=== PATIENT | female | born 1985 | race Caucasian/White ===

== ENCOUNTER 2017-02-05 05:18 | Inpatient (IN) | payer OTHER ==
--- NOTE | 2017-01-16 08:59 | PAT Medication Instructions ---
Service Date Jan 16, 2017. Current Home Medication List Adapalene (Differin), 1 APPLN TOP HS Clindamycin Phosphate-Benzoyl (Acanya), 1 APPLN TOP QAM Ibuprofen (Advil), 400 MG PO PRN Lorazepam (Ativan), 0.5 MG PO TID PRN for RN Melatonin-Pyridoxine (Melatonin), 3 MG PO HS PRN for PRN Medication Instructions For Your Scheduled Surgery - Check with surgeon for instructions: Ibuprofen (Advil), 400 MG PO PRN - Hold the following medications 24 hours prior to surgery: Adapalene (Differin), 1 APPLN TOP HS (facial) Clindamycin Phosphate-Benzoyl (Acanya), 1 APPLN TOP QAM (facial) - Take the following medications the morning of surgery with a sip of water: Lorazepam (Ativan), 0.5 MG PO TID PRN for RN - Take the following medications as scheduled the night before surgery: Melatonin-Pyridoxine (Melatonin), 3 MG PO HS PRN for PRN Lorazepam (Ativan), 0.5 MG PO TID PRN for RN If you have any questions please call us at [phone] (Amie Queen PA-C) or [phone] or [phone]
[2017-01-16 09:11] LABS: BASO % 0.3 %; BASO ABS # 0.02 K/uL (0-0.2); COMPLETE YES; EOS % 2.3 %; HEMATOCRIT 39.9 % (37-47); IG% 0.2 %; LYMPH % 45.4 %; LYMPH ABS # 2.92 K/uL (1.2-3.4); MEAN CELL VOLUME 85.3 fL (80-100); MEAN CORPUSCULAR HEMOGLOBIN 29.1 pg (25-34); MEAN CORPUSCULAR HGB CONC 34.1 g/dl (32-36); MEAN PLATELET VOLUME 9.5 fL (7.4-10.4); MONO % 7.2 %; NEUT % 44.6 %; PLATELET COUNT 270 K/uL (130-400); RED BLOOD COUNT 4.68 M/uL (4.2-5.4); WHITE BLOOD COUNT 6.43 K/uL (4.8-10.8)
[2017-01-16 09:30] LABS: PARTIAL THROMBOPLASTIN RATIO 1.1; PROTHROMBIN TIME (PATIENT) 10.7 SECONDS (9.0-12.0)
--- NOTE | 2017-01-29 15:52 | HISTORY & PHYSICAL EXAMINATION ---
DATE OF ADMISSION: 02/05/2017 ADMITTING DIAGNOSES: Severe maxillary hypoplasia and mandibular prognathism. PROPOSED SURGICAL PROCEDURE: [place] I maxillary osteotomy to advance the maxilla 7 mm and set the mandible back via sagittal split and direct fixation by 3 mm. I plan to keep the patient in the intensive care unit for the first postoperative night. HISTORY OF PRESENT ILLNESS: Chel is a healthy 31-year-old white female who stands 5 feet 4 inches tall and weighs 172 pounds. 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 She is referred to my office a number of years ago with a very abnormal malocclusion. Her upper and lower teeth did not meet together. She has a great deal of difficulty in eating and chewing because of this inability of her teeth to meet. She had chronic ulcers on her tongue, cheek and lips as a result of the constant biting of these structures due to her malocclusion. In order to correct this problem, a combined orthodontic and orthognathic surgical approach was necessary. Chel underwent a successful maxillary osteotomy about 2 years ago in order to increase the dimension of her upper jaw. The upper jaw now has a nice dimension, but it is very retrognathic. As a result of this, the patient has a very thin lip and very hypoplastic midface. The patient has a maxillary mandibular discrepancy of approximately 10 mm. The surgical correction is going to involve on the Fort 1 maxillary osteotomy for advancement of about 7 mm with direct fixation followed by an immediate sagittal split osteotomy to push the mandible back 3 mm and into a good class 1 occlusion. I am hoping to get good direct osseous fixation and avoid any type of intermaxillary fixation, we may use temporary intermaxillary fixation with the use of some guiding elastics. I reviewed with medication list of all the risks, complications of this surgical procedure which include but are not limited to pain, swelling, infection, bleeding sinus, both chronic and acute, the need for blood transfusion which is extremely remote. In addition, we discussed the fact that she will have paresthesia involving the upper facial area involving the nose and upper lips as well as the lower lip in the cheek areas and possibly the tongue. We talked about there is a good possibility that this will be temporarily, but it is also possible that could be permanent, but not very common. We talked about the fact that she would need to be on a very soft diet. She will need to have close followup between me and her tool setter apprentice, Dr. Kevin Rinaldi, who practices orthodontics in [place], [place]. Chel has a good oral hygiene and her teeth are in good repair except they are in a very abnormal position. She has a maxillary hypoplasia with prognathic mandible. As a result of this, only the back teeth meet and she does not have a stable occlusion. I feel that Chel has an extremely good understanding of all the risks, complications of the proposed surgical procedures. A complete review of these risks and be found in the patient assessment portion of the chart. It is at this time that I find Chel to be a stable individual to undergo the orthognathic surgical procedure. PAST MEDICAL HISTORY: Her past medical history is essentially noncontributory. She gives no history of any type of heart or respiratory problems. Does not have any problems with walking stairs, running or doing housework. The patient states that she does have some problems with anxiety and then she had an EKG where it was determined that her rapid heart rate was due to anxiety rather than any type of cardiac event. Besides the anxiety, the patient does not have any other concomitant medical issues. She gives no history of any type of orthopedic or spine or joint problems. She feels that she is slightly overweight and would like to lose a number of pounds. SOCIAL HISTORY: She does not smoke. She does have alcohol occasionally. She does not smoke marijuana. She is 31. 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 She does not smoke and she drinks occasionally, 1-2 glasses of wine per week. PAST SURGICAL HISTORY: She has had operations in the past in which she had an upper jaw expansion and wisdom teeth removal. She had no problems with the anesthesia. ALLERGIES: She has no allergies to any drugs or medications. MEDICATIONS: She does take lorazepam 0.5 mg p.r.n. for anxiety and she states that she uses this only on rare occasions. She uses a gel for her face for acne and clindamycin lotion also for her face for skin care. REVIEW OF SYSTEMS: Gives no history of any type of liver or kidney problems, or history of any type of cancer and never had any anesthetic complications. 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 I find Chel to be a very healthy 31-year-old white female who is capable of undergoing the orthognathic surgical procedure as planned. Surgery is planned for 02/05/2017 at [facility]. One night of admission to the intensive care unit is planned. PHYSICAL EXAMINATION: HEAD: Normocephalic without any history of any head trauma, loss of consciousness, dizziness or vertigo. No history of any head trauma, headaches. No dizziness, no vertigo. EARS: Within normal limits. External auditory canals are clear. No hearing deficits. No outer ear pathology, no ear inner pathology noted. EYES: Pupils are round, reactive to light and accommodation. Sclera is clear. Extraocular motion within normal limits. Good visual acuity. NOSE: Midline. Septum is midline. The cheeks and the nasal areas are somewhat hyperplastic as a result of the sunken in appearance of the midface. She has no history of any type of nasal congestion or nasal deviations. She has good bilateral nasal sounds and good clear nasal breathing. ORAL CAVITY: The patient has a rather significant dental facial malocclusion. She has a severe maxillary hypoplasia with retrognathic maxilla, prognathic mandible. Her teeth are in good repair. Gingiva is within normal limits. The tongue, floor of the mouth and posterior pharyngeal areas were all within normal limits. There are some ulcers associated with her lip and cheek biting. The glans of the cheeks, parotid and submandibular all within normal limits. Temporomandibular joints are unremarkable with good range of motion. NECK: Supple, full range of motion. Thyroid not palpable. Trachea is midline. Good extension and flexation and good rotation. No abnormal masses noted. COR: Normal sinus rhythm. LUNGS: Clear to auscultation and percussion, bilateral symmetric. SKIN: Clear, dry, free of pathology. NEUROLOGIC: Grossly intact. ABDOMEN: Soft. No organomegaly. No rebound phenomena noted. ORTHOPEDIC: Grossly intact. FAMILY HISTORY: Essentially noncontributory. DATA: Laboratory studies were all found to be within normal limits. IMPRESSION AND PLAN: In my opinion, Chel is a healthy young lady who is capable of undergoing the proposed surgical procedure. She has an extremely good understanding of the surgical procedure including the risks and complications; surgery is planned for 02/05/2017 at the [facility]. [facility]
[~2017-02-05] VITALS: Ht 162.6 cm; Wt 79.2 kg
[2017-02-05] VITALS (13 sets, daily range): BP systolic 109–145; BP diastolic 65–93; PULSE 75–110; TEMP 36.6–36.8; O2SAT 93–99; Ht 162.6 cm; Wt 79.2 kg
[~2017-02-05 05:18] MED LIST: ADAP0.1G10 TOP; CLIN45GE TOP; IBUP-1050 PO; LORA-741 PO; MELA1TAB3 PO
[2017-02-05] MEDS ORDERED: LACTATED RINGER'S 1000ML 1,000 ML IV SCH ×2 (06:00)
[2017-02-05] MEDS ORDERED: CEFAZOLIN 1000MG/55 ML D5W IV SCH (06:00)
[2017-02-05] MEDS ORDERED: LIDOCAINE HCL 2% JELLY 30 ML TUBE EXT ONE (06:48)
[2017-02-05] MEDS ORDERED: OXYMETAZOLINE HCL 0.05% NA SPR 15 ML BTL ONE (06:48)
--- NOTE | 2017-02-05 06:54 | History & Physical Bridge Note ---
H&P Re-Evaluation Bridge Note: I have examined the patient, reviewed the History & Physical and in the interval since the performance of the History & Physical I have noted the following changes of clinical significance: No changes noted
[2017-02-05] MEDS ORDERED: MoRPHine SULFATE 2 MG/ML CARP IV PRN (07:00)
[2017-02-05] MEDS ORDERED: ONDANSETRON INJ 2 MG/ML 2 ML VIAL IV PRN ×2 (07:00→07:15)
[2017-02-05] MEDS ORDERED: OXYMETAZOLINE HCL 0.05% NA SPR 15 ML BTL PRN (07:00)
[2017-02-05] MEDS ORDERED: SODIUM CHLORIDE 0.65% NA SOLN 45 ML (OCEAN) PRN (07:00)
[2017-02-05] MEDS ORDERED: ACETAMINOPHEN/HYDROCODONE ELIX 15 ML/CUP UDP PO PRN (07:00)
[2017-02-05] MEDS ORDERED: LORAZEPAM INJ 1 MG in SYRINGE 0.5 ML IV PRN (07:00)
[2017-02-05] MEDS ORDERED: TRIAMCINOLONE ACET 0.1% OINT 15 GM TUBE ONE (07:01)
[2017-02-05] MEDS ORDERED: CHLORHEXIDINE GLUCONATE 0.12% 15 ML UDP ONE ×2 (07:02→07:31)
[2017-02-05] MEDS ORDERED: BUPIVACAINE/EPINEPHRINE 0.5% 1:200,000 1.8 ML CARP ONE (07:02)
[2017-02-05] MEDS ORDERED: NEOSTIGMINE METHYLSULFATE 5 MG/5 ML SYR ONE (07:06)
[2017-02-05] MEDS ORDERED: ONDANSETRON INJ 2 MG/ML 2 ML VIAL ONE (07:06)
[2017-02-05] MEDS ORDERED: PROPOFOL IV EMULSION 10 MG/ML 20 ML VIAL IV ONE (07:06)
[2017-02-05] MEDS ORDERED: GLYCOPYRROLATE INJ 0.2 MG/ML VIAL ONE (07:06)
[2017-02-05] MEDS ORDERED: EpHEDrine SULFATE INJ 50 MG/ML AMP ONE (07:06)
[2017-02-05] MEDS ORDERED: PHENYLEPHRINE HCL INJ 10 MG/ML VIAL ONE (07:06)
[2017-02-05] MEDS ORDERED: MIDAZOLAM HCL 1 MG/ML 2ML VIAL ONE (07:06)
[2017-02-05] MEDS ORDERED: FENTANYL CITRATE INJ 50 MCG/1 ML 2 ML VIAL ONE ×2 (07:06→13:06)
[2017-02-05] MEDS ORDERED: DEXAMETHASONE SOD INJ 4 MG/ML VIAL ONE ×2 (07:06→10:19)
[2017-02-05] MEDS ORDERED: ROCURONIUM BROMIDE 10 MG/ML 5 ML VIAL ONE ×2 (07:06→11:11)
[2017-02-05] MEDS ORDERED: LIDOCAINE HCL 2% 2 ML VIAL (20MG/ML) ONE (07:06)
[2017-02-05] MEDS ORDERED: SUCCINYLCHOLINE CHLORIDE 20 MG/ML 10 ML VIAL IV ONE (07:06)
[2017-02-05] MEDS ORDERED: FENTANYL CITRATE INJ 50 MCG/1 ML 2 ML VIAL IV PRN (07:15)
[2017-02-05] MEDS ORDERED: ATROPINE SULFATE 0.1 MG/ML 5ML SYR IV PRN (07:15)
[2017-02-05] MEDS ORDERED: EpHEDrine SULFATE INJ 50 MG/ML AMP IV PRN (07:15)
[2017-02-05] MEDS ORDERED: HYDROmorphone INJ 2 MG/ML SYR/VIAL ONE ×2 (07:58→08:50)
[2017-02-05] MEDS ORDERED: BUPIVACAINE/EPINEPHRINE 0.5% MPF 1:200,000 30 ML VIAL ONE (08:08)
[2017-02-05] MEDS ORDERED: LIDOCAINE 2%/EPINEPHRINE 1:100,000 1.8 ML CARTRIDGE ONE ×2 (08:08→08:26)
[2017-02-05] MEDS ORDERED: LABETALOL HCL IV 5 MG/ML 20ML IV ONE (10:18)
[2017-02-05] MEDS ORDERED: SURGICEL ABSORB HEMOSTAT 2IN X 14IN TOP ONE (11:34)
--- NOTE | 2017-02-05 12:49 | [facility] Post Operative Brief Note ---
Immediate Operative Summary Operative Date Feb 05, 2017. Pre-Operative Diagnosis Severe maxillary hypoplasia and mandibular prognathism Post-Operative Diagnosis Same as preoperative diagnosis Procedure(s) Performed L[place] I Advancement of Upper Jaw; Sagittal Split Osteotomy of the Lower Jaw Surgeon Dr. Devaughn Cullen Level Vial Setter Surgeon(s) SELINA Sheridan, RIP SAWYER Estimated Blood Loss 75 mL Findings maxillary hypoplasia and Adina prognathism Class III occl with maxillary deficiency Very thin adina bone , nerve very close to lateral cortical bone Specimens No pathology specimens per surgeon Drains none Anesthesia GA and local Complication(s) None Disposition Surgical ICU
--- NOTE | 2017-02-05 13:15 | DIAGNOSTIC IMAGING REPORT ---
MANDIBLE < 4 VIEWS CLINICAL HISTORY: Status post Orthognathic Surgery COMPARISON STUDY: No previous studies for comparison. FINDINGS: There are postsurgical changes of a sagittal split mandibular osteotomy. There are postsurgical changes of a maxillary osteotomy. There is no evidence of condylar dislocation. There is a slight overbite. IMPRESSION: Postsurgical changes of maxillary and mandibular osteotomies. Electronically signed by: Rikki Taylor M.D. 02/05/2017 1:14 PM Dictated Date/Time: 02/05/2017 1:12 PM
[2017-02-05] MEDS ORDERED: METOCLOPRAMIDE HCL INJ 5 MG/ML 2 ML VIAL ONE ×2 (13:30→13:31)
[2017-02-05] MEDS ORDERED: NURSING VERBAL MED ORDER ONE ×2 (13:30→15:45)
--- NOTE | 2017-02-05 13:51 | Anesthesiology Progress Note ---
Anesthesia Post Op Note Date & Time Feb 05, 2017 at 13:51 Vital Signs Pain Intensity: 4 Vital Signs Past 12 Hours Date Time Temp Pulse Resp B/P Pulse Ox O2 Delivery O2 Flow Rate FiO2 02/05/17 13:40 36.5 82 15 126/78 95 Nasal Cannula 4 02/05/17 13:30 81 14 116/72 96 Nasal Cannula 4 02/05/17 13:20 73 14 121/72 96 Nasal Cannula 4 02/05/17 13:10 75 14 99/78 95 Nasal Cannula 4 02/05/17 13:00 82 13 122/76 97 Mask 10 02/05/17 12:50 77 13 113/65 94 Mask 10 02/05/17 12:40 36.5 82 12 113/82 98 Mask 10 02/05/17 05:55 36.6 80 16 119/65 99 Room Air Notes Mental Status: alert / awake / arousable, participated in evaluation Pt Amnestic to Procedure: Yes Nausea / Vomiting: adequately controlled Pain: adequately controlled Airway Patency, RR, SpO2: stable & adequate BP & HR: stable & adequate Hydration State: stable & adequate Anesthetic Complications: no major complications apparent
[2017-02-05] MEDS: CHLORHEXIDINE GLUCONATE 0.12% 480 ML MT SCH ×2 (15:49→19:39)
[2017-02-05] MEDS ORDERED: PETROLATUM 16 OZ JAR EXT PRN (16:00)
[2017-02-05] MEDS: KETOROLAC TROMETHAMINE 30 MG/ML VIAL IV. SCH ×2 (16:03→21:19)
[2017-02-05] MEDS: D5W AND 1/2NSS + 20MEQ KCL 1,000 ML IV SCH ×2 (16:03→23:46)
[2017-02-05] MEDS: CEFAZOLIN IV 1,000 MG in DEXTROSE 5% 50ML 50 ML IV SCH ×2 (16:04→23:34)
[2017-02-05] MEDS: DEXAMETHASONE INJ 6 MG in SYRINGE 0 ML IV SCH ×2 (16:24→21:19)
[2017-02-05] MEDS ORDERED: TRIAMCINOLONE ACET 0.1% OINT 15 GM TUBE EXT SCH (21:00)
[2017-02-06] VITALS (11 sets, daily range): BP systolic 90–120; BP diastolic 65–73; PULSE 65–94; TEMP 36.5–36.8; O2SAT 93–95
--- NOTE | 2017-02-06 00:07 | Critical Care Consultation ---
Critical Care Consultation Date of Consultation: Feb 05, 2017. Attending Physician: Devaughn Cullen D.M.D. Reason for Consultation: Postop Airway observation History of Present Illness Attending: Dr. Gerard Rosario Chel Hoffman is a 31-year-old female who presented for elective [place] I maxillary osteotomy with Dr. Cullen without complication. According to his documentation and the patient interview, she has underwent prior combined orthodontic procedures and orthognathic surgeries including a maxillary osteotomy 2 years ago. She denies any significant past medical history exclusive of anxiety and states she takes no medications on a regular basis. She states she is experiencing a 1/10 pain within the surgical area.; which is tolerable She denies any shortness of breath, trouble swallowing, or pressure with in her throat/mouth. She denies headache, fever, chills, malaise, dizziness, chest pain/pressure, cough, abd pain, nausea, numbness/tingling of the extremities. 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[employer]) Allergies Coded Allergies: Doxycycline (Unverified Adverse Reaction, Unknown, CHEST DISCOMFORT, ) Home Medications Scheduled Adapalene (Differin), 1 APPLN TOP HS Clindamycin Phosphate-Benzoyl (Acanya), 1 APPLN TOP QAM Ibuprofen (Advil), 400 MG PO PRN Scheduled PRN Lorazepam (Ativan), 0.5 MG PO TID PRN for RN Melatonin-Pyridoxine (Melatonin), 3 MG PO HS PRN for PRN Current Inpatient Medications Current Inpatient Medications Medications (Trade) Dose Ordered Sig/Amos Route Start Time Stop Time Status Last Admin Dose Admin Potassium Chloride/Dextrose/ Sod Cl (D5W And 1/2nss + 20meq KCl) 1,000 ml @ 125 mls/hr Q8H IV 02/05/17 16:00 03/07/17 06:54 02/05/17 16:03 125 MLS/HR Ketorolac Tromethamine 30 mg 30 mg Q6H IV. 02/05/17 16:00 02/10/17 11:59 02/05/17 21:19 30 MG Dexamethasone Sodium Phosphate/ Syringe (Decadron Inj/ Syringe) 1.5 ml @ 1 mls/min Q6H IV 02/05/17 16:00 03/07/17 11:59 02/05/17 21:19 1 MLS/MIN Oxymetazoline HCl (Afrin 0.05% Nasal [place]) 2 sprays Q4H PRN NA 02/05/17 07:00 03/07/17 06:59 02/05/17 19:39 2 SPRAYS Ondansetron HCl (Zofran Inj) 4 mg Q6H PRN IV 02/05/17 07:00 03/07/17 06:59 02/05/17 16:03 4 MG Triamcinolone Acetonide 1 appln 1 appln HS EXT 02/05/17 21:00 03/07/17 20:59 02/05/17 19:39 1 APPLN Lorazepam/Syringe (Ativan Inj/ Syringe) 1 ml @ 1 mls/min Q4H PRN IV 02/05/17 07:00 03/07/17 06:59 Chlorhexidine Gluconate (Peridex Oral Soln) 15 ml BID MT 02/05/17 09:00 03/07/17 08:59 02/05/17 19:39 15 ML Sodium Chloride ([place] Nasal [place]) 2 sprays Q2H PRN NA 02/05/17 07:00 03/07/17 06:59 02/05/17 19:39 2 SPRAYS Acetaminophen/ Hydrocodone Bitart (Lortab Elixir) 10 ml Q3H PRN PO 02/05/17 07:00 02/19/17 06:59 Morphine Sulfate 2 mg 2 mg Q1H PRN IV 02/05/17 07:00 02/19/17 06:59 02/05/17 19:46 2 MG Cefazolin Sodium/ Dextrose (Ancef Iv/D5 50ml) 55 ml @ 100 mls/hr Q8H IV 02/05/17 16:00 02/06/17 06:59 02/05/17 23:34 100 MLS/HR Petrolatum (Petrolatum) PRN PRN EXT 02/05/17 16:00 03/07/17 15:59 02/05/17 16:25 0.1 OZ Review of Systems 12 systems reviewed and negative other than previously mentioned in the HPI. Physical Exam Date Time Temp Pulse Resp B/P Pulse Ox O2 Delivery O2 Flow Rate FiO2 02/05/17 22:00 80 15 109/72 94 Room Air 02/05/17 21:00 80 14 114/77 94 Room Air 02/05/17 20:00 96 Room Air 02/05/17 20:00 36.8 87 19 122/81 95 02/05/17 19:00 82 16 112/73 94 02/05/17 18:00 79 16 116/71 95 Room Air 02/05/17 17:15 90 14 128/90 94 02/05/17 17:00 88 14 118/83 93 Nasal Cannula 2.0 02/05/17 16:32 110 17 145/93 02/05/17 16:15 77 12 124/81 99 02/05/17 16:00 95 Nasal Cannula 2.0 02/05/17 16:00 75 15 126/81 95 Nasal Cannula 2.0 02/05/17 15:30 36.8 97 14 123/90 98 Nasal Cannula 2.0 02/05/17 15:00 98 Room Air 2.0 02/05/17 15:00 130/86 02/05/17 15:00 36.8 100 16 130/86 98 Nasal Cannula 2.0 02/05/17 14:45 90 16 119/83 98 Nasal Cannula 4 02/05/17 14:30 96 16 110/80 98 Nasal Cannula 4 02/05/17 14:15 82 16 116/86 96 Nasal Cannula 4 02/05/17 14:00 84 12 120/85 97 Nasal Cannula 4 02/05/17 13:50 85 12 125/86 96 Nasal Cannula 4 02/05/17 13:40 36.5 82 15 126/78 95 Nasal Cannula 4 02/05/17 13:30 81 14 116/72 96 Nasal Cannula 4 02/05/17 13:20 73 14 121/72 96 Nasal Cannula 4 02/05/17 13:10 75 14 99/78 95 Nasal Cannula 4 02/05/17 13:00 82 13 122/76 97 Mask 10 02/05/17 12:50 77 13 113/65 94 Mask 10 02/05/17 12:40 36.5 82 12 113/82 98 Mask 10 02/05/17 05:55 36.6 80 16 119/65 99 Room Air Vital Signs - as noted Laboratory Data - as noted Physical Exam: General - NAD Eyes - PERRL, EOMI No icterus, gaze conjugate ENT - minimal facial swelling noted, dried blood present from prior nose bleed, facial ice wrap in place Neck - Supple, trachea midline, no masses or lymphadenopathy, no JVD or bruits Lungs - No paradoxical chest wall movement, clear to auscultation bilaterally, no wheezes, rales, or rhonchi Heart - Reg rate and rhythm, No murmur, rubs, clicks, or gallops appreciated Abdomen - BS present, no bruits noted, tympanic to percussion, soft, nontender, nondistended, no organomegaly Extremities - No edema, pedal pulses intact Neuro - A&O x 4 Strength extremities equal and appropriate bilaterally Reflexes: Bicep, brachioradialis, patellar, and plantar normal and equa Laboratory Results Last 24 Hours Test 02/05/17 05:48 Bedside Urine Test NEG Diagnostic Results MANDIBLE < 4 VIEWS CLINICAL HISTORY: Status post Orthognathic Surgery COMPARISON STUDY: No previous studies for comparison. FINDINGS: There are postsurgical changes of a sagittal split mandibular osteotomy. There are postsurgical changes of a maxillary osteotomy. There is no evidence of condylar dislocation. There is a slight overbite. IMPRESSION: Postsurgical changes of maxillary and mandibular osteotomies. Electronically signed by: Rikki Taylor M.D. 02/05/2017 1:14 PM Dictated Date/Time: 02/05/2017 1:12 PM Assessment & Plan ENT: * POD # 0 * Will monitor for change of O2 status, increase bleeding, or oropharyngeal swelling. * Continue fluid management per Dr. Cullen's recommendation * GI: Diet per surgeon recommendation; will require soft foods ID: * Continue prophylactic antibiotic * Cefazolin 1 g IV every 8 hours * Chlorhexidine mouthwash per surgery * Monitor surgical site, fever curve, and daily CBC Neuro: * Home diagnosis of anxiety: Lorazepam 1 mg IV every 4 hours * Pain currently well controlled; continue current management Respiratory/Cardiovascular: * Monitor on telemetry Access: * Left peripheral Hand IV in place CCT: 0 minutes; Level 2 In-patient Billing; Not including any billable procedures. Thank you for including us in the care of this patient. Please review Dr. Gee 's addendum for further recommendations. I have personally evaluated and examined this patient. I agree with assessment and plan of Praveena Candelario PA-C. Discussed operative procedure with Dr. Cullen, no evidence of significant airway swelling at this time. Will continue close observation
[2017-02-06] MEDS: KETOROLAC TROMETHAMINE 30 MG/ML VIAL IV. SCH ×2 (04:08→10:35)
[2017-02-06] MEDS: DEXAMETHASONE INJ 6 MG in SYRINGE 0 ML IV SCH ×2 (04:08→10:26)
--- NOTE | 2017-02-06 06:39 | Discharge Instructions ---
Discharge Instructions Date of Service Feb 06, 2017. Admission Reason for Admission: Maxillary Retrognathism & Mandibular Prognathism Discharge Discharge Diagnosis / Problem: s/p max and dick surgery Discharge Goals Goal(s): Decrease discomfort, Improve function, Increase independence Activity Recommendations Activity Limitations: as noted below Lifting Limitations: no more than 10 pounds Exercise/Sports Limitations: until after follow-up appointment May Resume Sexual Activity: after follow-up appointment Driving or Machine Use: resume 3 days after discharge . Instructions / Follow-Up Instructions / Follow-Up [facility] GENERAL POST-OPERATIVE INSTRUCTIONS FOR PATIENTS HAVING JAW SURGERY POST-OP INSTRUCTIONS BLEEDING: Will be under control by the time you leave our operating room. Some oozing or blood-tinged saliva may persist for up to 24 hours. Should excessive bleeding occur call the office or Dr. Cullen. Expect nasal oozing for a few days. This also will occur after getting up or after you shower. PAIN: Is best controlled by the medications recommended. They are most effective when taken before the local anesthesia diminishes and normal sensation returns to the area. Do not take pain pills on an empty stomach. Narcotic pain medication such as Vicodin or Percocet may cause nausea, vomiting, drowsiness, dizziness, itching or constipation. If these side effects occur, discontinue the medication. You may take an alternative over the counter pain medication (Tylenol or Motrin ) as necessary or call our office for assistance. SWELLING: May occur immediately and increase gradually over 24-48 hours. Swelling from the surgical procedure will maximize at 48-72 hours. Ice packs applied externally to the area at 20 minute intervals throughout the day of surgery may help control swelling, but only use them if advised to by our office. Sleeping with the head of bed elevated above the level of the heart for the first two post-operative nights may tend to lessen swelling. NAUSEA: May result from a general anesthetic or the drugs prescribed for pain. Drinking a small glass of a carbonated beverage will generally control mild nausea. If not controlled, call the office. The Zofran ODT may be used as instructed. DIET: Soft foods and liquids will be required for 24-48 hours following surgery. Avoid hot, spicy foods. Do not smoke. Non-chewy foods are okay if you are using the elastic bands. Follow the instruction about what to eat and how to remove and replace your bands as instructed by Dr. Cullen. If your jaw is wired together -liquid diet ONLY. ORAL HYGIENE: Should not be neglected. [place] your teeth as usual and rinse with warm salt water after each meal beginning gently the night of surgery. Use Peridex twice a day. Other mouth rinses can be used to keep your mouth clean. ACTIVITY: Should be restricted to a minimum for the first 7 -10 days. Strenuous work or exercise may promote bleeding. If you have had a general anesthetic or sedation, we must require that you be accompanied home by a responsible adult and an adult stays with you until recovered from the effects of the anesthesia. Under no circumstances are you to drive a car for at least 24 hours. FEVER: After surgery it is normal for the body temperature to be slightly elevated for 24 hours. SIDE EFFECTS: Such as an ear ache, temporary ache of adjacent teeth, restricted mouth opening , stretching or cracking at the corners of the mouth or discoloration of the skin may occur postoperatively. These are temporary conditions that will improve as healing progresses. As a result of the surgery your bite will feel off, this is normal. Your lower and upper lip will also feel numb as a result of the surgery; over time this will subside. EMERGENCIES: In case of profuse bleeding, uncontrolled pain, persistent nausea or abnormal elevation of temperature, if you have any questions about these instructions or your surgery please call our office or Dr. Pugh cell phone. Our goal is to make this procedure as safe and pleasant as possible. Email Dr. Cullen---[email or web address] Phone Dr. Cullen after hours and weekends, Phone (office) [phone] Current Hospital Diet Patient's current hospital diet: Clear Liquid Diet Discharge Diet Recommended Diet: Full Liquid Diet Fluid Restriction: None Diet Texture: Dental Soft (bite-sized) Liquid Consistency: Pudding Thick Procedures Procedures Performed: Lefort I Advancement of Upper Jaw; Sagittal Split Osteotomy of the Lower Jaw Pending Studies Studies pending at discharge: no Work Instructions Return To Work: after follow-up Lifting Limitations: no more than 10 pounds School Instructions Return To School: after follow-up Medical Emergencies . Who to Call and When: Medical Emergencies: If at any time you feel your situation is an emergency, please call 911 immediately. . Non-Emergent Contact Non-Emergency issues call your: Primary Care Provider Call Non-Emergent contact if: you have a fever, temperature is above 101.5, your pain is not controlled, your pain is worsening, your pain is unusual for you, you have any medication questions . "Provider Documentation" section prepared by Devaughn Cullen. VTE Core Measure Inpt VTE Proph given/why not?: SCD's [place] Drug Monitoring Program Search Results: no issues identified Drug Monitoring Findings: none
--- NOTE | 2017-02-06 07:19 | DISCHARGE SUMMARY ---
DATE: 02/06/2017 This is both a Discharge note and progress note Patient is being discharged today she did very well from her recent surgery TIME: Approximately 6:45 AM on Sat SUBJECTIVE: I am visiting Chel in the ICU at [facility], room #3. She underwent a successful mandibular and maxillary osteotomy yesterday to control maxillary hypoplasia and mandibular prognathism. She underwent surgical advancement of her maxilla with direct osseous fixation and a mandibular set back with direct fixation. Her bones were extremely dense and very cortical. Her intermaxillary fixtures and her direct osseous fixation were so strong that no dental elastics were needed. Her occlusion was extremely stable. She tolerated the surgical procedure extremely well and had minimal blood loss. She was subsequently transferred to the recovery room and then to the intensive care unit. In the intensive care unit, she continued to do well. She was able to drink and void without any problems. All of her swelling was isolated to the upper and lower lip area with some slight swelling in the cheek area. The patient was breathing well, had minimal problems with pain or tolerating the postoperative anesthesia. She did not complain of any nausea and as a matter of fact was doing extremely well. I evaluated her last night at approximately 8:00 p.m. We discussed with her and her the success of the surgery and the care that is needed. I then visited her this morning at 6:45. She continued to do well. Her lip swelling has gone down. I instructed how to take care of herself over the next 5-7 days before her appointment with me in my office on 02/12/2017. Plan-- She was given explicit postoperative instructions to care for herself; which includes Augmentin antibiotics to be taken every 12 hours, Vicodin pain medication one every 4-6 hours for pain and Peridex mouth rinse. We instructed her on dietary care, which is basically a very soft liquid diet or even some soft foods. We discussed oral hygiene care, as well as keeping ice to the face and massaging the face. Overall, Chel did extremely well from the surgery. I did discuss the fact that she has paresthesia as expected to the lower lip and chin area. This is a result of the retraction and working around the inferior alveolar nerve. We discussed this preoperatively. Otherwise, her occlusion is good. Her postoperative x-rays are good. It shows very good bony approximation. Her occlusion is stable. She has a reproducible occlusion. She is not complaining of any pain in her temporomandibular joints; as a matter of fact she has a very good range of motion. Impression: Overall, I find Chel has tolerated the surgical procedure and anesthetic extremely well and I am approving her for discharge this morning in care of her . She has all of her postoperative instructions and prescriptions at home and I will be following her in my office in approximately 5-7 days. She has my number and email if she has any problems or concerns. At this time, the patient will be discharged once she meets all criteria for discharge from [facility]. ANTONINA
[2017-02-06] MEDS: CHLORHEXIDINE GLUCONATE 0.12% 480 ML MT SCH (07:55)
[2017-02-06] MEDS: D5W AND 1/2NSS + 20MEQ KCL 1,000 ML IV SCH (07:56)
--- NOTE | 2017-02-11 15:19 | OPERATIVE REPORT ---
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 As a result of this, the patient could not close her jaws into a normal relationship and she had a class 3 type of occlusion in which the lower jaw was much more anterior than the upper jaw. She had a very flat nasomaxillary area as a result of the maxillary hypoplasia. She had a very prominent chin due to the prognathic mandible. In order to correct this problem, a mandibular osteotomy was planned for setback approximately 3 mm and a maxillary osteotomy to advance the maxilla of 7 mm with the use of direct fixation was planned. DESCRIPTION OF PROCEDURE: The surgery was scheduled for 02/05/2017 at the [facility]. At this time I evaluated the patient, I performed my bridge note and made sure that there were no new changes since she was last seen in my office. Since no new findings were noted, the patient was then brought back to the operating room and placed under general anesthesia via nasotracheal intubation. After adequate anesthesia was obtained, the patient was prepped and draped in the usual manner for maxillomandibular surgery. Prior to infiltrating the local anesthesia, a time out was held to make sure that we had the correct patient, the right procedure and the right equipment. Once the timeout was ensured, the operation began. Local anesthesia was infiltrated into the maxilla to allow for hemostasis and local anesthetic effect as well as bilaterally in the posterior areas of the mandible. After an adequate time for hemostasis and local anesthetic effect, the oral cavity was irrigated and suctioned dried, oropharyngeal throat packs were placed, Peridex mouth rinse was instilled in the mouth and then suctioned dry. Sterile dressings were applied around the face to isolate the facial area. At this time, the operation began. The procedure was to perform half of the sagittal split osteotomy on the mandible and then perform the total maxillary osteotomy and place the maxilla in its new anterior position and then complete the osteotomy site splits and complete the case. In order to accomplish this, the operation began as follows. At this time, I turned my attention to the right side. An electrocautery instrument was used to make an incision in the external oblique ridge area. It became very apparent that this patient had a very thin jaw and had a very almost nonexistent external oblique ridge. I had to be very careful in my planning as to not injure the roots of the mandibular teeth due to the fact that there was essentially no lateral flare of the mandible. The overall thickness of the bone in the area was not very thick. Nevertheless, with careful dissection, I was able to find the neurovascular bundle as it entered the lingual aspect of the mandible. The nerve was retracted. Now using a large round harry, I was able to remove some of the spinous process of the external oblique ridge to plateau the area and make it flatter for the osteotomy. Once this was accomplished, I now used a spear point Guardado harry, made a series of holes along the external oblique ridge from the previously made osteotomy cut to just distal of the second molar. I then wanted to extend the bone cut further, but because of the proximity of the lateral cortical plate to the roots of the teeth, I was hesitant to do so. I now carried the osteotomy site downwards towards the inferior border of the mandible. Great care was taken in cutting the cortical bone knowing that it was only about 1-2 mm thick and then the nerve was very adherent to the lateral border of the mandible. From the CT scanning it was obvious that the bone was extremely thin and there was very little to no marrow component. The inferior border of the mandible was cut in the standard fashion. After this was accomplished, I packed the area and made sure all bleeders were coagulated and I turned my area to the left side. Once again a similar cut was made in the soft tissue, the reflection was carried out to expose the bone. Once again we encountered the same anatomy. Nevertheless, in this time I was able to isolate the nerve and the lingual aspect. I used a round harry to remove the bone on the external oblique ridge to flatten it out. The spear point Guardado harry was used. I encountered the same anatomical relationship of the thinness of the bone and carried the osteotomy inferiorly towards the inferior border of the mandible just distal to the second molar. Once again, the bone was very thin and very dense with no narrow cortical bone noted. This was confirmed both clinically and by the CT scan. At this time, I completed the preliminary osteotomy cuts. Both areas were now irrigated and suctioned dried, removed the gauze pressure dressing and coagulated any bleeders. There was some buccal fat that was herniated through the incisions and these were trimmed in the usual fashion. The areas were now packed and I turned my attention from the maxilla. The maxillary tissues were quite dense and had a good tissue tone. The procedure was a straight osteotomy of advancement of approximately 7 mm. To accomplish this an electrocautery instrument was made to make an incision high in the mucobuccal fold from the right bicuspid area to the left bicuspid area. Once this was accomplished, the tissue were reflected to expose the lateral wiley of the maxilla, the pterygoid plates posteriorly and the anterior nasal spine and roots of the teeth. With great care, I was able to also dissect the piriform rims and isolated the mucoperiosteal tissue of the nose. Once this was done, we had good visualization of the maxilla. With the use of calipers, I was able to make measurements on the maxilla to ensure that all my cuts were above the roots of the teeth. After this was done, a few reference nunn were placed to allow me to perform the osteotomy without injury to the roots of the teeth or to the infraorbital nerve or the anterior nasal areas. With the use of a reciprocating saw, an osteotomy was now made from the piriform rim on the right side posteriorly to the tuberosity region. Great care was taken to avoid any injury to the mucoperiosteal tissues of the nose or the roots of the teeth. Once this was done, I switched to a curved osteotome and completed the osteotomy and the tube rested in the tuberosity region with the curved osteotome. Great care was taken to avoid any injury to the neurovascular bundle in this region. At this time, the area was packed. I now turned my attention to the left side. Once again, the osteotomy sites were visualized, the osteotomy with the reciprocating saw was used to make the osteotomy from the piriform rim posteriorly to the tuberosity. Once again, the curved osteotome was used to osteotomize the tuberosity region from the pterygoid plate. Once this was accomplished, a gauze pressure packing was placed in this area. I now turned my attention anteriorly and with the use of a guarded osteotome to prevent tearing of the mucoperiosteal tissue of the floor of the nose, I was able to sever the attachment of the anterior nasal spine from the roof of the palate. Once this was done, I was able to reflect the mucoperiosteal tissue off the floor of the nose and raise all the tissue superiorly. At this time, the maxilla was easily downfractured. Once it was down fractured, I used run jaws to remove any bony interferences and bony spicules. Being satisfied with this, I trimmed the nasal septal area with the use of a large round harry to accommodate the nasal septum as the maxilla was advanced to ensure that we had no compromise or crimping of the nasal septal bone as the maxilla was advanced. At this time, I used both sharp and blunt dissection to dissect posteriorly into the pterygoid fissure areas in the soft palate to ensure that we had a very passive anterior relationship of the maxilla. Great care was taken to do so. I noted that the neurovascular bundles were intact. I was able to remove some bone around them and they were easily advanced with the rest of the maxilla. There were no rents or tears in the mucoperiosteal tissues of the palate. A few small rents in the nasal mucoperiosteal tissues were easily sutured with the use of a 3-0 chromic suture. At this time I was satisfied with the very passive nature of the maxilla and the maxilla was very mobile, but it still had a good vascular pedicle from the soft tissues of the soft palate. At this time an intermediate splint that I made in the office to allow for a 7 mm advancement of the maxilla was now placed on the mandible. The maxilla was easily rotated into position and with the use of finger pressure I was able to align the maxilla to the stent. Now using 25 gauge stainless steel wires I ligated the maxilla to the mandible. Now using the mandible as my guide, I rotated the maxilla superiorly and made sure that my condyles were well seated within the glenoid fossa. After this was accomplished, there were a few areas that needed some bone reduction to allow for passive fit of the maxilla. Once this was accomplished, we had excellent repositioning of the maxilla where we were able to see a 7 mm advancement with ease. All the bones were in good contact. At this time, we irrigated the maxillary sinus areas and the remainder of the maxilla. We also irrigated around the oropharyngeal area. There was no blood. There were no blood clots and we had an excellent stability of the maxilla. At this time, with the use of 4 titanium bone plates were carefully bent and passively fitted on the maxilla, 2 in the piriform rim area and 2 in the zygomatic air buttress area. When all was said and done, we had excellent interbony fixation with the plates to hold the maxilla both superiorly and anteriorly. At this time being satisfied with the anatomical relationship of the maxilla, the nose, the upper lip and soft tissue advancement of the whole midface we now turned our attention back to the mandible. With the use of wire cutters the wires that were holding the maxilla and mandible were removed and the intervening splint was removed. The occlusion was stable and reproducible. I now turned my attention to the oropharyngeal area. We irrigated the oropharyngeal area through the nose. We then sucked out a lot of clots in the area. We re-packed the area with a gauze pressure dressing and turned our attention first to the right side of the sagittal split osteotomy site. The gauze pressure dressing was removed and there was no bleeding. Now with the use of small elevators and a small bone c application developer, I was able to carefully perform a sagittal split of the mandible on the right side. It was soon noted that there was essentially no cortical bone and that the nerve was really wedged in between the 2 cortical plates. Great care was used in teasing the nerve off the condylar fragment due to the fact that it was literally buried in a thin layer of cortical bone. I had to use small osteotomes and a very small drill to carefully remove the nerve from this fragment of bone. Despite very carefully reflecting the nerve, the nerve in my opinion was pretty well stretched and traumatized from all of the manipulation around it. Nevertheless, the nerve was allowed to sit passively. Once I completed the osteotomy, trimmed up all of the bone and ensured that there was no compression on the nerve. However, given the fact that this bone was so thin and there was no marrow vascular component I am concerned that the nerve could have some bruising due to the manipulation. Nevertheless, I continued with the osteotomy, I smoothed all the bones out and made sure that the 2 fragments were lying passively over each other, made a trough in the bone to allow it to accommodate the nerve position. After I was satisfied with this and the condyle was well seated within the glenoid fossa, I was able to put a small gauze pressure dressing to prevent any scraping on the nerve and turned my attention back to the left side. Once again, I was able to use the bone spreaders and small osteotomes and completed the osteotomy. Once again, the nerve was found to be buried in the condylar fragment and with again careful dissection of the bone with rongeurs, rotary instruments and small osteotomes, I was able to free the nerve. This nerve looked to be a little bit better condition than the one on the right side, but again due to the amount of manipulation on this nerve there was always the possibility that nerve injury has occurred. Once again, I trimmed the bone which was very dense cortical bone and essentially no marrow vascular component, this I feel was the main reasons why the osteotomy sites were so difficult to split due to the fact that they were very dense cortical bone with minimal amount of marrow in between. This also in my opinion was directly related to the difficulty with the nerve separation. Nevertheless, with rongeurs and rotary instruments, I was able to trim the fragments to make sure that they were lying passively over each other once in the new position. Once I was satisfied that all the bones were smooth and that the condyles were well seated and all the gauze pressure dressings were removed the oropharyngeal throat pack was removed. The oral cavity was now irrigated and suctioned dried. Now using the final splint, this was applied to the stable maxilla. The mandible was rotated into position and using a series of 25 gauge stainless steel wires, the maxilla was ligated to the mandible. Once this was accomplished, I turned my attention to the right side. Great care was taken in positioning the fragment so that it would fit passively over the osteotomy site. Because we did set the mandible back, I did need to remove approximately 3 mm of cortical bone at the inferior, anterior as well as the most posterior aspect of the fragment to allow for an anatomical fit of these 2 fragments. Again, great care was used with good protection of the nerve to re-contour this fragment. Once this was done, I very carefully removed bone in the most distal aspect to accommodate the setback of the mandible. After this was done, I used a small clasp and held the 2 fragments of bone together. I noted that the bone was very dense cortical bone. With the use of a gemini incision in the cheek with an 11 blade, a trocar was placed and now 3 holes were placed above the neurovascular bundle, but below the external oblique ridge and 3 interosseous screws were used, they were 8, 10 and 12 mm in length. This secured direct fixation to the fragment. I then irrigated the area and packed it. I turned my attention to the left side. Once again, some further bone manipulation was required to allow for the setback of 3 mm. A bone reduction was carried out in the anterior and the most posterior aspect to allow for a good fit. When all was said and done, we had a very passive fit of the 2 fragments of bone. A space was made for the nerves to prevent compression. At this time, the small clasp was used. Once the clasp was used the 2 fragments were then held together in a very passive position, the 11 blade was used to make a small gemini incision in the cheek, the trocar was placed and once again 3 holes were placed above the neurovascular bundle, but below the external oblique ridge and the 3 holes were then fitted with screws again in the form of 8, 10 and 12 mm x 2 mm screws. At this time intermaxillary fixation was removed. The occlusion was found to be extremely stable with no clicks, pops or deviations and a good range of motion. All osteotomy sites were extremely stable. At this time, the areas were irrigated and I then began closure of the inferior sites with the use of 4-0 Vicryl suture in both a continuous and interrupted fashion. When we completed the closure of both mandibular sites I then turned my attention to the maxilla. The maxilla was clear. There was no bleeding. We then irrigated the area just to remove any possible clots and debris. I started anteriorly with the use of a 3-0 mersilene suture and performed an alar cinch technique. This is to allow for proper anatomical support to the base of the nose. After 2 of the alar cartilage sling sutures were used with the 4 mersilene suture, I then performed a standard VY closure of the mucoperiosteal tissues using a 4-0 Vicryl suture. When all was said and done, we had excellent anatomical support to the upper lip to the base of the nose. The occlusion was found to be extremely stable and satisfactory. We then irrigated the nasal cavities of any clots and debris, then irrigated the oropharyngeal throat area as well. At this time, my conference assistant which was Lizett Estrada, she closed the 2 gemini incisions in the cheek with a 6-0 nylon suture as well as performing an oral gastric lavage of the stomach to remove any contents there. At this time, a heavy facial dressing was applied to the upper lip and sides of the cheek. The patient was allowed to recover in the usual manner. When she was fully recovered, she was extubated. She was now transferred to the hospital bed and with complete monitoring she was taken to the recovery room. The plan was to keep her in the recovery room until she meets criteria for discharge to the intensive care unit. My plan is to keep her in the intensive care unit at least 12-18 hours and then discharge her on Saturday if she meets all criteria. Postoperative x-rays were taken and showed good anatomical positioning of the maxilla and mandible. Clinically, the patient did very well in the recovery room. Her occlusion was satisfactory. She had a tight occlusion and good range of motion. Because of the stability of the maxilla and mandible and the occlusion, no intermaxillary fixation was used. The patient may use some dental elastics on postoperative visit. Overall, Chel Hfofman tolerated the surgical procedure extremely well. OPERATING SURGEON: Dr. Devaughn Cullen. ESTIMATED BLOOD LOSS: Approximately 75 mL. NURSE CONTACT CLERK: Lizett Estrada. ESTIMATED TIME OF SURGERY: Approximately 5 hours. PROCEDURE: Maxillary LeFort I osteotomy for advancement with direct osseous fixation and a mandibular sagittal split osteotomy with direct fixation for setback. I attest to the content of the Intraoperative Record and any orders documented therein. Any exceptio ns are noted below.
== END 2017-02-06 12:00 | disposition home or self-care (01) | DRG 132 ==
LOC: ENRESERVDT → ENRESERVTM → C.ACU 05:18 → C.MSICU 07:07
PROVIDERS: ADMIT Dentist Oral and Maxillofacial Surgery; ATTEND Dentist Oral and Maxillofacial Surgery
PROC: 0NSS04Z (ICD-10-PCS; principal; 2017-02-05 07:15)
PROC: 0NSV0ZZ Reposition Left Mandible, Open Approach (ICD-10-PCS; principal; 2017-02-05 07:15)
PROC: 0N8R0ZZ Division of Maxilla, Open Approach (ICD-10-PCS; principal; 2017-02-05 07:15)
PROC: 0NST0ZZ Reposition Right Mandible, Open Approach (ICD-10-PCS; principal; 2017-02-05 07:15)
PROC: 0N8T0ZZ Division of Right Mandible, Open Approach (ICD-10-PCS; principal; 2017-02-05 07:15)
PROC: 0N8V0ZZ Division of Left Mandible, Open Approach (ICD-10-PCS; principal; 2017-02-05 07:15)
PROC: [UNRECOGNIZED PROCEDURE] (principal; 2017-02-05 07:15)
PROC: 0NSR04Z Reposition Maxilla with Internal Fixation Device, Open Approach (ICD-10-PCS; principal; 2017-02-05 07:15)
DX: M26.02 Maxillary hypoplasia (principal); M26.04 Mandibular hypoplasia; M26.19 Other specified anomalies of jaw-cranial base relationship; F41.9 Anxiety disorder, unspecified